=== PATIENT | male | born 1990 | race Caucasian/White ===

== ENCOUNTER 2018-02-23 22:32 | Emergency (ER) | payer OTHER ==
[~2018-02-23] VITALS: Ht 175.3 cm; Wt 65.5 kg
[2018-02-23 22:35] VITALS: Ht 175.3 cm; Wt 65.5 kg
[2018-02-23 23:33] VITALS: BP 119/58
== END 2018-02-23 23:33 | disposition home or self-care (01) ==
LOC: ED 22:32
DX: Z76.0 Encounter for issue of repeat prescription (principal)

== ENCOUNTER 2018-05-15 22:10 | Emergency (ER) | payer OTHER ==
[~2018-05-15] VITALS: Ht 175.3 cm; Wt 70.8 kg
[2018-05-15 22:22] VITALS: Ht 175.3 cm; Wt 70.8 kg
[2018-05-15 23:20] VITALS: BP 129/98
== END 2018-05-15 23:20 | disposition home or self-care (01) ==
LOC: ED 22:10
DX: G40.909 Epilepsy, unspecified, not intractable, without status epilepticus (principal); Z76.0 Encounter for issue of repeat prescription

== ENCOUNTER 2018-05-22 04:24 | Emergency (ER) | payer OTHER ==
[~2018-05-22] VITALS: Ht 165.1 cm; Wt 74.8 kg
[2018-05-22 04:33] VITALS: BP 142/87; Ht 165.1 cm; Wt 74.8 kg
== END 2018-05-22 05:14 | disposition home or self-care (01) ==
LOC: ED 04:24
DX: Z76.0 Encounter for issue of repeat prescription (principal); G40.909 Epilepsy, unspecified, not intractable, without status epilepticus
CPT/HCPCS: 82962

== ENCOUNTER 2018-10-10 19:43 | Emergency (ER) | payer MEDICAID ==
[~2018-10-10] VITALS: Ht 175.3 cm; Wt 64.4 kg
[2018-10-10 20:19] VITALS: Ht 175.3 cm; Wt 64.4 kg
[2018-10-11 02:16] VITALS: BP 118/71
== END 2018-10-11 02:16 | disposition home or self-care (01) ==
LOC: ED 19:43
DX: Z76.0 Encounter for issue of repeat prescription (principal); G40.909 Epilepsy, unspecified, not intractable, without status epilepticus

== ENCOUNTER 2018-11-20 21:24 | Emergency (ER) | payer OTHER ==
[~2018-11-20] VITALS: Ht 175.3 cm; Wt 63.5 kg
[2018-11-20 22:10] VITALS: Ht 175.3 cm; Wt 63.5 kg
[2018-11-20 23:21] VITALS: BP 118/76
== END 2018-11-20 23:21 | disposition home or self-care (01) ==
LOC: ED 21:24
DX: R56.9 Unspecified convulsions (principal); Z76.0 Encounter for issue of repeat prescription

== ENCOUNTER 2018-11-25 23:22 | Emergency (ER) | payer OTHER ==
[~2018-11-25] VITALS: Ht 175.3 cm; Wt 63.5 kg
[2018-11-25 23:39] VITALS: Ht 175.3 cm; Wt 63.5 kg
[2018-11-26 02:13] VITALS: BP 125/77
== END 2018-11-26 01:50 | disposition home or self-care (01) ==
LOC: ED 23:22
DX: Z76.0 Encounter for issue of repeat prescription (principal); R56.9 Unspecified convulsions

== ENCOUNTER 2019-04-10 19:25 | Emergency (ER) | payer OTHER ==
[~2019-04-10] VITALS: Ht 175.3 cm; Wt 67.6 kg
[2019-04-10 19:29] VITALS: Ht 175.3 cm; Wt 67.6 kg
[2019-04-10 20:39] VITALS: BP 128/85
== END 2019-04-10 20:39 | disposition home or self-care (01) ==
LOC: ED 19:25
DX: Z76.0 Encounter for issue of repeat prescription (principal); R56.9 Unspecified convulsions

== ENCOUNTER 2019-05-10 19:18 | Emergency (ER) | payer OTHER ==
[~2019-05-10] VITALS: Ht 175.3 cm; Wt 68.0 kg
[2019-05-10 19:48] VITALS: Ht 175.3 cm; Wt 68.0 kg
[2019-05-10 20:43] VITALS: BP 126/75
== END 2019-05-10 20:43 | disposition home or self-care (01) ==
LOC: ED 19:18
DX: Z76.0 Encounter for issue of repeat prescription (principal)

== ENCOUNTER 2019-07-16 18:19 | Emergency (ER) | payer OTHER ==
[~2019-07-16] VITALS: Ht 175.3 cm; Wt 69.4 kg
[2019-07-16 18:26] VITALS: Ht 175.3 cm; Wt 69.4 kg
[2019-07-16 18:46] VITALS: BP 124/81
== END 2019-07-16 18:47 | disposition home or self-care (01) ==
LOC: ED 18:19
DX: G40.909 Epilepsy, unspecified, not intractable, without status epilepticus (principal); Z76.0 Encounter for issue of repeat prescription

== ENCOUNTER 2019-08-20 17:48 | Emergency (ER) | payer OTHER ==
[~2019-08-20] VITALS: Ht 175.3 cm; Wt 70.8 kg
[2019-08-20 17:56] VITALS: Ht 175.3 cm; Wt 70.8 kg
[2019-08-20 19:15] VITALS: BP 124/86
== END 2019-08-20 19:15 | disposition home or self-care (01) ==
LOC: ED 17:48
DX: Z76.0 Encounter for issue of repeat prescription (principal)

== ENCOUNTER 2019-10-06 18:32 | Emergency (ER) | payer OTHER ==
[~2019-10-06] VITALS: Ht 175.3 cm; Wt 68.0 kg
[2019-10-06 18:45] VITALS: BP 117/72; Ht 175.3 cm; Wt 68.0 kg
== END 2019-10-06 18:56 | disposition home or self-care (01) ==
LOC: ED 18:32
DX: G40.909 Epilepsy, unspecified, not intractable, without status epilepticus (principal); Z76.0 Encounter for issue of repeat prescription

== ENCOUNTER 2019-10-23 19:15 | Emergency (ER) | payer OTHER ==
[~2019-10-23] VITALS: Ht 175.3 cm; Wt 70.3 kg
[2019-10-23 19:25] VITALS: Ht 175.3 cm; Wt 70.3 kg
[2019-10-23 20:06] VITALS: BP 136/76
== END 2019-10-23 20:06 | disposition home or self-care (01) ==
LOC: ED 19:15
DX: G40.909 Epilepsy, unspecified, not intractable, without status epilepticus (principal); Z76.0 Encounter for issue of repeat prescription

== ENCOUNTER 2019-12-14 17:19 | Emergency (ER) | payer OTHER ==
[~2019-12-14] VITALS: Ht 175.3 cm; Wt 67.6 kg
[2019-12-14 17:25] VITALS: Ht 175.3 cm; Wt 67.6 kg
[2019-12-14 17:45] VITALS: BP 129/79
== END 2019-12-14 17:45 | disposition home or self-care (01) ==
LOC: ED 17:19
DX: F17.210 Nicotine dependence, cigarettes, uncomplicated (principal); Z76.0 Encounter for issue of repeat prescription
CPT/HCPCS: 99406

== ENCOUNTER 2020-02-18 22:36 | Emergency (ER) | payer OTHER ==
[~2020-02-18] VITALS: Ht 170.2 cm; Wt 65.3 kg
[2020-02-18 22:45] VITALS: Ht 170.2 cm; Wt 65.3 kg
[2020-02-18 23:04] VITALS: BP 132/80
== END 2020-02-18 23:04 | disposition home or self-care (01) ==
LOC: ED 22:36
DX: R56.9 Unspecified convulsions (principal); Z76.0 Encounter for issue of repeat prescription

== ENCOUNTER 2020-03-01 19:37 | Emergency (ER) | payer OTHER ==
[~2020-03-01] VITALS: Ht 175.3 cm; Wt 68.5 kg
[2020-03-01 19:56] VITALS: BP 114/69; Ht 175.3 cm; Wt 68.5 kg
== END 2020-03-01 20:28 | disposition home or self-care (01) ==
LOC: ED 19:37
DX: R56.9 Unspecified convulsions (principal); Z76.0 Encounter for issue of repeat prescription

== ENCOUNTER 2020-03-26 21:40 | Emergency (ER) | payer OTHER ==
[~2020-03-26] VITALS: Ht 162.6 cm; Wt 64.4 kg
[2020-03-26 22:18] VITALS: Ht 162.6 cm; Wt 64.4 kg
[2020-03-27 00:04] VITALS: BP 120/75
== END 2020-03-27 00:04 | disposition home or self-care (01) ==
LOC: ED 21:40
DX: G40.909 Epilepsy, unspecified, not intractable, without status epilepticus (principal); F19.90 Other psychoactive substance use, unspecified, uncomplicated; F17.210 Nicotine dependence, cigarettes, uncomplicated; Z76.0 Encounter for issue of repeat prescription
CPT/HCPCS: 99406